=== PATIENT | male | born 1970 | race Two or more races ===

== ENCOUNTER 2017-02-03 20:59 | Emergency (ER) | payer OTHER ==
--- NOTE | 2017-02-04 00:06 | EKG REPORT ---
SEVERITY:- NORMAL ECG - SINUS RHYTHM : Confirmed by: Carey Tavarez 04-Feb-2017 00:05:52
== END 2017-02-03 23:50 | disposition left against medical advice (07) ==
LOC: ER 20:59
DX: Z53.21 Procedure and treatment not carried out due to patient leaving prior to being seen by health care provider (principal)
CPT/HCPCS: 93005; 93010

== ENCOUNTER 2019-08-29 14:34 | Emergency (ER) | payer OTHER ==
[2019-08-29 14:39] VITALS: BP 151/84
--- NOTE | 2019-08-29 17:55 | RADIOLOGY REPORT (SQ) ---
EXAM DESCRIPTION: FOOT RIGHT COMPLETE COMPLETED DATE/TIME: 08/29/2019 5:23 pm REASON FOR STUDY: foot pain no injury COMPARISON: None. NUMBER OF VIEWS: Three views. TECHNIQUE: AP, lateral and oblique radiographic images acquired of the right foot. LIMITATIONS: None. FINDINGS: MINERALIZATION: Normal. BONES: No acute fracture or dislocation. No worrisome bone lesions. JOINTS: No effusions. SOFT TISSUES: No soft tissue swelling. No foreign body. OTHER: No other significant finding. IMPRESSION: NEGATIVE STUDY OF THE RIGHT FOOT. NO RADIOGRAPHIC EVIDENCE OF ACUTE INJURY. TECHNICAL DOCUMENTATION: JOB ID: [id number] [employer]- All Rights Reserved Reading location - IP/workstation name: [email or web address]
--- NOTE | 2019-08-29 18:57 | ER Document Report ---
HPI - HPI Time Seen by Provider: 08/29/19 16:05 Pain Level: 4 Notes: Patient is an otherwise healthy 48-year-old male presenting with pain to the bottom of his right foot. Patient reports this is been going on for approximately 1 month. He denies any injury. He states that he is purchased some insoles to see if that would help but it has not. He states the pain initially started in his right great toe but is now causing him discomfort all the way up into the top of his foot. Past Medical History - General Information source: Patient - Social History Smoking Status: Current Every Day Smoker Chew tobacco use (# tins/day): No Frequency of alcohol use: None Drug Abuse: None Family History: Reviewed & Not Pertinent Patient has suicidal ideation: No Patient has homicidal ideation: No - Medical History Medical History: Negative Renal/ Medical History: Denies: Hx Peritoneal Dialysis Surgical Hx: Negative - Immunizations Immunizations up to date: Yes Vertical Provider Document - CONSTITUTIONAL Notes: PHYSICAL EXAMINATION: GENERAL: Well-appearing, well-nourished and in no acute distress. HEAD: Atraumatic, normocephalic. EYES: Pupils equal round extraocular movements intact, conjunctiva are normal. ENT: Nares patent NECK: Normal range of motion LUNGS: No respiratory distress Musculoskeletal: Normal range of motion NEUROLOGICAL: Normal speech, normal gait. PSYCH: Normal mood, normal affect. SKIN: Slight erythema noted to dorsal surface of left foot, no heat, tender with palpation, strong dorsalis pedis pulse. Cap refill less than 3 seconds. - INFECTION CONTROL TRAVEL OUTSIDE OF THE [place] IN LAST 30 DAYS: No Course - Re-evaluation Re-evalutation: Foot X-Ray 08/29/19 16:19 IMPRESSION: NEGATIVE STUDY OF THE RIGHT FOOT. NO RADIOGRAPHIC EVIDENCE OF ACUTE INJURY. Xrays negative, will trial patient on a course of steroids and have follow up with podiatry. Patient is agreeable to the plan. - Vital Signs Vital signs: Temp Pulse Resp BP Pulse Ox 98 F 76 18 151/84 H 99 08/29/19 14:38 08/29/19 14:38 08/29/19 14:38 08/29/19 14:38 08/29/19 14:38 Discharge - Discharge Clinical Impression: Foot pain, right Condition: Stable Disposition: HOME, SELF-CARE Additional Instructions: Your x-ray was negative today. Please take ibuprofen 600 mg every 6 hours. Take the prednisone as prescribed. Continue to wear supportive shoes. Follow-up with either primary care or disaster response director if not improving. Prescriptions: Prednisone [Deltasone 20 mg Tablet] 3 tab PO DAILY 5 Days #15 tablet Referrals: ARBEN MOON DPM [ACTIVE STAFF] - Follow up as needed KENA ROBERTSON DPM [ACTIVE STAFF] - Follow up as needed JET GONSALEZ MD [ACTIVE STAFF] - Follow up as needed [facility] [Provider Group] - Follow up as needed
== END 2019-08-29 19:03 | disposition home or self-care (01) ==
LOC: ER 14:34
DX: M79.671 Pain in right foot (principal); L53.9 Erythematous condition, unspecified; F17.200 Nicotine dependence, unspecified, uncomplicated
CPT/HCPCS: 99283

== ENCOUNTER 2019-11-25 01:25 | Emergency (ER) | payer OTHER ==
[2019-11-25 01:42] LABS: ABSOLUTE BASOPHILS # (AUTO) 0.1 10^3/uL (0.0-0.2); ABSOLUTE EOSINOPHILS # (AUTO) 0.2 10^3/uL (0.0-0.6); ABSOLUTE LYMPHOCYTES (AUTO) 3.3 10^3/uL (0.5-4.7); ABSOLUTE MONOCYTES (AUTO) 0.9 10^3/uL (0.1-1.4); BASOPHILS % (AUTO) 0.7 % (0-2); EOSINOPHILS % (AUTO) 2.1 % (0-6); HEMATOCRIT 49.2 % (37.9-51.0); HEMOGLOBIN 17.1 g/dL (13.5-17.0); LYMPHOCYTES % (AUTO) 31.4 % (13-45); MEAN CORPUSCULAR HEMOGLOBIN 31.8 pg (27.0-33.4); MEAN CORPUSCULAR HGB CONC 34.7 g/dL (32.0-36.0); MEAN CORPUSCULAR VOLUME 92 fl (80-97); MONOCYTES % (AUTO) 8.9 % (3-13); PLATELET COUNT 234 10^3/uL (150-450); RED BLOOD COUNT 5.37 10^6/uL (4.35-5.55); RED CELL DISTRIBUTION WIDTH 13.9 % (11.5-14.0); SEGMENTED NEUTROPHILS % (AUTO) 56.9 % (42-78); TOTAL CELLS COUNTED % (AUTO) 100 %; WHITE BLOOD COUNT 10.5 10^3/uL (4.0-10.5)
[2019-11-25 01:43] VITALS: BP 203/105
[2019-11-25 02:04] LABS: ALBUMIN 4.8 g/dL (3.5-5.0); ALKALINE PHOSPHATASE 111 U/L (38-126); ANION GAP 11 (5-19); ASPARTATE AMINO TRANSFERASE 32 U/L (17-59); BILIRUBIN,TOTAL 0.6 mg/dL (0.2-1.3); BLOOD UREA NITROGEN 12 mg/dL (7-20); CALCIUM 9.5 mg/dL (8.4-10.2); CARBON DIOXIDE 25 mmol/L (22-30); CHLORIDE 106 mmol/L (98-107); CREATINE KINASE 191 U/L (55-170); GLUCOSE 106 mg/dL (75-110); POTASSIUM 3.6 mmol/L (3.6-5.0); TOTAL PROTEIN 8.1 g/dL (6.3-8.2)
[2019-11-25 02:15] LABS: CREATINE KINASE MB 1.6 ng/mL (<4.55); TROPONIN I 0.025 ng/mL
--- NOTE | 2019-11-25 07:06 | EKG REPORT ---
SEVERITY:- BORDERLINE ECG - SINUS RHYTHM INDETERMINATE QRS AXIS LEFT ATRIAL ABNORMALITY IRBBB : Confirmed by: Jalil Gupta MD 25-Nov-2019 07:05:44
== END 2019-11-25 05:52 | disposition left against medical advice (07) ==
LOC: ER 01:25
DX: Z53.21 Procedure and treatment not carried out due to patient leaving prior to being seen by health care provider (principal); R07.9 Chest pain, unspecified
CPT/HCPCS: 36415; 80053; 82550; 82553; 84484; 85025; 93005; 93010

== ENCOUNTER 2019-11-25 08:57 | Emergency (ER) | payer OTHER ==
[2019-11-25] MEDS ORDERED: ASPIRIN 81 MG TABLET, CHEWABLE PO ONE (09:16)
--- NOTE | 2019-11-25 09:16 | ER Document Report ---
ED Medical Screen (RME) - General Chief Complaint: Chest Pain Stated Complaint: CHEST PAIN Time Seen by Provider: 11/25/19 09:13 Mode of Arrival: Ambulatory Information source: Patient Notes: 49-year-old male presented to ED for complaint of left-sided chest pain since yesterday around 730 last night. He states he did come to the ED last night about 1230 and left before he was seen he states he did come to the he states he did take aspirin x1 this morning. He states he has never had pain like this before he states he smokes three quarters of a pack a day but does not drink. He is alert oriented respirations regular nonlabored. He states that his father had a heart attack about 45-50. He does not have any history of high blood pressure or cholesterol but it is present in the family. He states sometimes when he takes a deep breath he does feel the pain in the left chest I have greeted and performed a rapid initial assessment of this patient. A comprehensive ED assessment and evaluation of the patient, analysis of test results and completion of medical decision making process will be conducted by an additional ED providers. TRAVEL OUTSIDE OF THE [place] IN LAST 30 DAYS: No - Related Data Allergies/Adverse Reactions: No Known Allergies Allergy (Verified 11/25/19 09:05) Past Medical History Renal/ Medical History: Denies: Hx Peritoneal Dialysis - Immunizations Immunizations up to date: Yes
[2019-11-25] MEDS ORDERED: ASPIRIN 81 MG TABLET, CHEWABLE ONE (09:30)
[2019-11-25 09:49] LABS: ABSOLUTE BASOPHILS # (AUTO) 0.1 10^3/uL (0.0-0.2); ABSOLUTE LYMPHOCYTES (AUTO) 2.3 10^3/uL (0.5-4.7); ABSOLUTE MONOCYTES (AUTO) 0.7 10^3/uL (0.1-1.4); BASOPHILS % (AUTO) 0.6 % (0-2); HEMOGLOBIN 16.5 g/dL (13.5-17.0); LYMPHOCYTES % (AUTO) 23.6 % (13-45); MEAN CORPUSCULAR HGB CONC 34.5 g/dL (32.0-36.0); TOTAL CELLS COUNTED % (AUTO) 100 %
[2019-11-25 09:57] LABS: ABSOLUTE EOSINOPHILS # (AUTO) 0.3 10^3/uL (0.0-0.6); ABSOLUTE NEUT (AUTO) 6.4 10^3/uL (1.7-8.2); EOSINOPHILS % (AUTO) 2.8 % (0-6); HEMATOCRIT 47.9 % (37.9-51.0); MEAN CORPUSCULAR HEMOGLOBIN 31.4 pg (27.0-33.4); MEAN CORPUSCULAR VOLUME 91 fl (80-97); MONOCYTES % (AUTO) 6.7 % (3-13); PLATELET COUNT 238 10^3/uL (150-450); RED BLOOD COUNT 5.25 10^6/uL (4.35-5.55); SEGMENTED NEUTROPHILS % (AUTO) 66.3 % (42-78); WHITE BLOOD COUNT 9.7 10^3/uL (4.0-10.5)
--- NOTE | 2019-11-25 10:02 | RADIOLOGY REPORT (SQ) ---
EXAM DESCRIPTION: CHEST 2 VIEWS COMPLETED DATE/TIME: 11/25/2019 8:43 am REASON FOR STUDY: left upper chest pain up to left jaw COMPARISON: None. EXAM PARAMETERS: NUMBER OF VIEWS: two views TECHNIQUE: Digital Frontal and Lateral radiographic views of the chest acquired. RADIATION DOSE: NA LIMITATIONS: none FINDINGS: LUNGS AND PLEURA: No opacities, masses or pneumothorax. No pleural effusion. MEDIASTINUM AND HILAR STRUCTURES: No masses or contour abnormalities. HEART AND VASCULAR STRUCTURES: Heart normal size. No evidence for failure. BONES: No acute findings. HARDWARE: None in the chest. OTHER: No other significant finding. IMPRESSION: NO ACUTE RADIOGRAPHIC FINDING IN THE CHEST. TECHNICAL DOCUMENTATION: JOB ID: [id number] [employer]- All Rights Reserved Reading location - IP/workstation name: [email or web address]
[2019-11-25 10:08] LABS: ALBUMIN 4.8 g/dL (3.5-5.0); ALKALINE PHOSPHATASE 114 U/L (38-126); ANION GAP 9 (5-19); ASPARTATE AMINO TRANSFERASE 36 U/L (17-59); BILIRUBIN,TOTAL 0.4 mg/dL (0.2-1.3); BLOOD UREA NITROGEN 10 mg/dL (7-20); CALCIUM 9.4 mg/dL (8.4-10.2); CARBON DIOXIDE 25 mmol/L (22-30); CHLORIDE 108 mmol/L (98-107); GLUCOSE 114 mg/dL (75-110); POTASSIUM 4.2 mmol/L (3.6-5.0); TOTAL PROTEIN 7.8 g/dL (6.3-8.2)
[2019-11-25 10:32] LABS: APPEARANCE,URINE SLIGHTLY-CLOUDY; BILIRUBIN,URINE NEGATIVE (NEGATIVE); COLOR,URINE YELLOW; GLUCOSE, URINE NEGATIVE (NEGATIVE); KETONES,URINE TRACE mg/dL (NEGATIVE); PROTEIN,URINE 30 mg/dL (NEGATIVE); URINE SPECIFIC GRAVITY 1.025
[2019-11-25] MEDS ORDERED: NORMAL SALINE 1000 ML 1,000 ML IV ONE (10:42)
--- NOTE | 2019-11-25 10:43 | ER Document Report ---
Entered by LELO MALDONADO SCRIBE 11/25/19 1002 Acting as scribe for:KATHERIN RASMUSSEN MD ED General - General Chief Complaint: Chest Pain > 30 Stated Complaint: CHEST PAIN Time Seen by Provider: 11/25/19 09:13 Mode of Arrival: Ambulatory Information source: Patient Notes: This 49 year old male patient presents to the ED today with complaints of left- sided chest pain with radiation to his left arm and left side of his neck that began at 7:30 PM last night. Patient states that the pain would come and go and that he came to ED last night around 12:30 PM, but left without being seen. Patient's blood pressure at that time was 205/103. Patient states that the pain has been steady since and that he has never experienced these symptoms before. Patient reports shortness of breath, nausea, but denies vomiting. Patient states that the pain is worse with deep breathing, sitting up, and pulling up. Patient notes that he hasn't seen a doctor or had his blood pressure checked in a while. Patient states that his father had a MN in his early 40s and that his brother iza platt is a heavy smoker recently had a CVA x1 month ago. Patient notes that he recently traveled to [place], [place] via car for a and returned at 4:00 AM x4 days ago. TRAVEL OUTSIDE OF THE [place] IN LAST 30 DAYS: No - Related Data Allergies/Adverse Reactions: No Known Allergies Allergy (Verified 11/25/19 09:05) Home Medications: [facility] Past Medical History - General Information source: Patient - Social History Smoking Status: Current Every Day Smoker Cigarette use (# per day): Yes - 0.75 ppd Chew tobacco use (# tins/day): No Smoking Education Provided: No Frequency of alcohol use: Occasional Drug Abuse: None Family History: Reviewed & Not Pertinent, CVA - Brother, heavy smoker in October 2019, Hyperlipidemia, Hypertension, Other - Father had a MN in his early 40s Patient has suicidal ideation: No Patient has homicidal ideation: No Past Surgical History: Reports: Hx Inguinal Hernia - Immunizations Immunizations up to date: Yes Review of Systems - Review of Systems Constitutional: No symptoms reported EENT: No symptoms reported Cardiovascular: See HPI, Chest pain Respiratory: See HPI, Short of breath Gastrointestinal: See HPI, Nausea. denies: Vomiting Genitourinary: No symptoms reported Male Genitourinary: No symptoms reported Musculoskeletal: See HPI, Neck pain, Other - Left arm pain Skin: No symptoms reported Hematologic/Lymphatic: No symptoms reported Neurological/Psychological: No symptoms reported -: Yes All other systems reviewed and negative Physical Exam - Vital signs Vitals: Temp Pulse Resp BP Pulse Ox 98.4 F 77 18 175/95 H 97 11/25/19 09:19 11/25/19 09:19 11/25/19 09:19 11/25/19 09:19 11/25/19 09:19 Interpretation: Hypertensive - General General appearance: Alert - HEENT Head: Normocephalic, Atraumatic Eyes: Normal Pupils: PERRL Neck: Other - Left posterior cervical musculature tenderness with palpation - Respiratory Respiratory status: No respiratory distress Chest status: Tender - Left anterior chest wall and axillary tenderness with palpation Breath sounds: Normal Chest palpation: Normal - Cardiovascular Rhythm: Regular Heart sounds: Normal auscultation Murmur: No - Abdominal Inspection: Normal Distension: No distension Bowel sounds: Normal Tenderness: Nontender - Abdomen soft Organomegaly: No organomegaly - Back Back: Tender - Left trapezius musculature tenderness with palpation - Extremities General upper extremity: Normal inspection General lower extremity: Normal inspection. No: Edema - No peripheral edema Shoulder: Tender - Neurological Neuro grossly intact: Yes - Psychological Associated symptoms: Normal affect, Normal mood - Skin Skin Temperature: Warm Skin Moisture: Dry Skin Color: Normal Course - Re-evaluation Re-evalutation: 11/25/19 10:55 The patient's first troponin came back positive at 0.43, his blood pressure is about 170 systolic. He was administered 1 sublingual nitroglycerin at 1054. 11/25/19 11:14 Patient reports the nitroglycerin did not help the chest pain but did cause a headache. Given that the patient's chest pain is reproducible throughout the left chest, it will be difficult to tell if his pain is improving with nitrates. 11/25/19 14:09 Nitroglycerin paste had been ordered for the patient, but it did not get started in a timely manner. After discussing the case with Dr. Carreon at [facility], I canceled that order and ordered nitroglycerin drip to titrate to a blood pressure of 130 systolic. When I went into see the patient just prior to leaving, his blood pressure was 170, so I asked the nurse to continue titrating the nitroglycerin drip to bring the patient's blood pressure down. - Vital Signs Vital signs: Temp Pulse Resp BP Pulse Ox 98.4 F 77 14 181/102 H 100 11/25/19 09:19 11/25/19 09:19 11/25/19 13:20 11/25/19 13:20 11/25/19 13:20 - Laboratory Result Diagrams: 11/25/19 09:32 11/25/19 09:32 Laboratory results interpreted by me: 11/25/19 11/25/19 11/25/19 09:32 09:32 09:32 Chloride 108 H Glucose 114 H Creatine Kinase 268 H CK-MB (CK-2) Urine Protein 30 H Urine Ketones TRACE H Urine Urobilinogen 2.0 H 11/25/19 09:32 Chloride Glucose Creatine Kinase CK-MB (CK-2) 9.16 H Urine Protein Urine Ketones Urine Urobilinogen - Diagnostic Test Radiology reviewed: Image reviewed, Reports reviewed - Chest x-ray is unremarkable. - EKG Interpretation by Me EKG shows normal: Sinus rhythm, Moro, Intervals, QRS Complexes - Right ventricular hypertrophy, ST-T Waves Rate: Normal - 74 Rhythm: NSR P Waves: LAE When compared to previous EKG there are: No significant change - Compared to EKG done about 1:30 AM this morning. - Consults Dr. Carreon Consulted provider: other - Will accept at [facility]. Critical Care Note - Critical Care Note Total time excluding time spent on procedures (mins): 45 Discharge - Discharge Clinical Impression: Non-STEMI (non-ST elevated myocardial infarction), Acute chest wall pain Hypertension Qualifiers: Hypertension type: essential hypertension Qualified Code(s): I10 - Essential (primary) hypertension Condition: Fair Disposition: [facility] Scribe Attestation: 11/25/19 11:15 I personally performed the services described in the documentation, reviewed and edited the documentation which was dictated to the scribe in my presence, and it accurately records my words and actions. I personally performed the services described in the documentation, reviewed and edited the documentation which was dictated to the scribe in my presence, and it accurately records my words and actions.
[2019-11-25 10:48] LABS: URINE AMPHETAMINES SCREEN NEGATIVE; URINE BARBITURATES SCREEN NEGATIVE; URINE BENZODIAZEPINES SCREEN NEGATIVE; URINE COCAINE SCREEN NEGATIVE; URINE METHADONE SCREEN NEGATIVE; URINE PHENCYCLIDINE SCREEN NEGATIVE
[2019-11-25 10:51] LABS: URINE MARIJUANA (THC) SCREEN UNCONFIRMED POSITIVE
[2019-11-25 11:14] LABS: CREATINE KINASE 268 U/L (55-170)
[2019-11-25] MEDS ORDERED: METOPROLOL TARTRATE PF/INJ 5 MG/5 ML SDV IV ONE (11:14)
[2019-11-25] MEDS ORDERED: ENOXAPARIN SODIUM INJ 100 MG/1 ML DISP.SYRIN SUBCUT ONE (11:58)
[2019-11-25] MEDS ORDERED: MORPHINE SULFATE 10 MG/ML INJ IV ONE ×2 (12:05→14:23)
[2019-11-25] MEDS ORDERED: ONDANSETRON HCL INJ/PF 4 MG/2 ML SDV IV ONE ×2 (12:05→14:23)
[2019-11-25] MEDS ORDERED: NITROGLYCERIN 2% OINTMENT 1 GM PACKET TP ONE (12:40)
[2019-11-25] MEDS ORDERED: NITROGLYCERIN/D5W 50 MG/250 ML RTUINJ IV PRN (12:56)
--- NOTE | 2019-11-25 13:50 | EKG REPORT ---
SEVERITY:- BORDERLINE ECG - SINUS RHYTHM PROBABLE LEFT ATRIAL ABNORMALITY CONSIDER RIGHT VENTRICULAR HYPERTROPHY : Confirmed by: Jalil Gupta MD 25-Nov-2019 13:50:13
[2019-11-25 14:56] VITALS: BP 142/82
== END 2019-11-25 14:55 | disposition short-term general hospital (02) ==
LOC: ER 08:57
DX: I21.4 Non-ST elevation (NSTEMI) myocardial infarction (principal); R07.89 Other chest pain; I10 Essential (primary) hypertension; M79.602 Pain in left arm; M54.2 Cervicalgia; R06.02 Shortness of breath; R11.0 Nausea; F17.210 Nicotine dependence, cigarettes, uncomplicated
CPT/HCPCS: 93005; 96376; 99285; 96372; 96361; 96375; 96365; 96366; 36415; 82553; 82550; 87070; 81001; 84484; 80307; 85379; 71046; 93010; J3490 ×2; J2270; J2405; J7030; J1650

== ENCOUNTER 2019-12-15 11:48 | Emergency (ER) | payer OTHER ==
--- NOTE | 2019-12-15 13:21 | ER Document Report ---
ED Medical Screen (RME) - General Chief Complaint: Chest Pain Stated Complaint: CHEST PAIN Time Seen by Provider: 12/15/19 13:15 Primary Care Provider: HERNESTO BIRD MD [Primary Care Provider] - Follow up as needed Mode of Arrival: Ambulatory Information source: Patient Notes: 49-year-old male patient with recent non-STEMI approximately 2 weeks ago presenting to the emergency department chief complaint of chest pain. Patient reports midsternal chest pain that radiates straight through to his back started 3 days ago. He states the pain is getting worse. He does report that he has anxiety and he thinks this may be a component. He does report some shortness of breath but denies any nausea, diaphoresis. He reports he was seen here in this hospital and sent to [facility] for his non-STEMI. He denies them placing any stents. Heart sounds S1-S2 present, normal rate, normal rhythm. Skin warm and dry, no diaphoresis noted. Lung sounds clear and equal bilaterally. I have greeted and performed a rapid initial assessment of this patient. A comprehensive ED assessment and evaluation of the patient, analysis of test results and completion of the medical decision making process will be conducted by additional ED providers. I have specifically instructed the patient or family members with the patient to immediately return to any nursing staff should anything change in the patient's condition or with their chief complaint. TRAVEL OUTSIDE OF THE [place] IN LAST 30 DAYS: No - Related Data Allergies/Adverse Reactions: No Known Allergies Allergy (Verified 12/15/19 13:10) Past Medical History - Social History Frequency of alcohol use: None Drug Abuse: None Renal/ Medical History: Denies: Hx Peritoneal Dialysis Past Surgical History: Reports: Hx Inguinal Hernia - Immunizations Immunizations up to date: Yes Physical Exam - Vital signs Vitals: Temp Pulse Resp BP Pulse Ox 98.7 F 77 16 134/80 H 97 12/15/19 12:12/15/19 12:12/15/19 12:12/15/19 12:12/15/19 12:25 Course - Vital Signs Vital signs: Temp Pulse Resp BP Pulse Ox 98.7 F 77 16 134/80 H 97 12/15/19 12:12/15/19 12:12/15/19 12:25 12/15/19 12:12/15/19 12:25 Doctor's Discharge - Discharge Referrals: HERNESTO BIRD MD [Primary Care Provider] - Follow up as needed
--- NOTE | 2019-12-15 13:22 | EKG REPORT ---
SEVERITY:- BORDERLINE ECG - SINUS RHYTHM PROBABLE LEFT ATRIAL ABNORMALITY INDETERMINATE QRS AXIS : Confirmed by: Jalil Gupta MD 15-Dec-2019 13:21:45
[2019-12-15] MEDS ORDERED: ASPIRIN 81 MG TABLET, CHEWABLE PO ONE (13:29)
--- NOTE | 2019-12-15 13:51 | ER Document Report ---
ED General - General Chief Complaint: Chest Pain Stated Complaint: CHEST PAIN Time Seen by Provider: 12/15/19 13:15 Primary Care Provider: HERNESTO BIRD MD [Primary Care Provider] - Follow up as needed Mode of Arrival: Ambulatory TRAVEL OUTSIDE OF THE [place] IN LAST 30 DAYS: No - HPI Notes: Patient is a 49-year-old male who presents to the emergency department for evaluation of chest pain. He states that started on Sunday evening. He states that the sharp chest pain that is in his left chest. It occasionally radiates around into his back. He has some mild associated shortness of breath. He states he thinks there may be a component of anxiety with this chest pain. The patient admits to a recent non-STEMI. He was transferred to [facility] from this facility. He underwent heart catheterization, per patient no stents were placed. He states he was told "his high blood pressure probably caused his heart problems, not the other way around." He states he has had some recent medication changes for his anxiety, is unsure if this is helping. Otherwise, he is taking all of his medications as prescribed, including his aspirin and high blood pressure medications. He states that the pain he had with his NSTEMI included a heaviness that is not present today. - Related Data Allergies/Adverse Reactions: No Known Allergies Allergy (Verified 12/15/19 13:10) Past Medical History - General Information source: Patient - Social History Smoking Status: Current Every Day Smoker Frequency of alcohol use: None Drug Abuse: None Family History: Reviewed & Not Pertinent, CVA - Brother, heavy smoker in October 2019, Hyperlipidemia, Hypertension, Other - Father had a VA in his early 40s Patient has suicidal ideation: No Patient has homicidal ideation: No - Past Medical History Cardiac Medical History: Reports: Hx Heart Attack, Hx Hypercholesterolemia, Hx Hypertension Endocrine Medical History: Reports: Hx Diabetes Mellitus Type 2 - "Borderline" Renal/ Medical History: Denies: Hx Peritoneal Dialysis Musculoskeletal Medical History: Reports Other - Chronic back pain Past Surgical History: Reports: Hx Cardiac Catheterization, Hx Inguinal Hernia - Immunizations Immunizations up to date: Yes Review of Systems - Review of Systems Constitutional: No symptoms reported EENT: No symptoms reported Cardiovascular: See HPI Respiratory: See HPI Gastrointestinal: No symptoms reported Genitourinary: No symptoms reported Musculoskeletal: No symptoms reported Skin: No symptoms reported Neurological/Psychological: No symptoms reported Physical Exam - Vital signs Vitals: Temp Pulse Resp BP Pulse Ox 98.7 F 77 16 134/80 H 97 12/15/19 12:25 12/15/19 12:25 12/15/19 12:12/15/19 12:25 12/15/19 12:25 - Notes Notes: Vital signs reviewed, please refer to chart. Head is normocephalic, atraumatic. Pupils equal round, reactive to light. Neck is supple without meningismus. Heart is regular rate and rhythm. Lungs are clear to auscultation bilaterally. Chest wall is tender to palpation on the left at approximately the fifth rib. Corresponding thoracic level at the same rib posteriorly is tender. Abdomen is soft, nontender, normoactive bowel sounds throughout. Extremities without cyanosis, clubbing. Posterior calves are nontender. Peripheral pulses are equal. Skin is warm and dry. Patient is awake, alert, neurological exam is nonfocal. Course - Re-evaluation Re-evalutation: 12/15/19 13:55 Patient presents to the emergency department for evaluation. He is sharp left- sided chest pain. This is different from the pain he had when he had his non- STEMI. Patient is stable at this time. His vital signs are unremarkable. Awaiting lab work, we will continue to monitor. 12/15/19 15:17 Patient's pain remains sharp, he denies any pressure type sensation. His first set of enzymes is totally negative. Given his recent history, second set is ordered. I do believe this is musculoskeletal in nature. Assuming negative second set of troponins, patient will be discharged with close follow-up with primary care and cardiology. 12/15/19 16:46 After Percocet, patient's pain is feeling significantly improved. He has an appointment to follow-up with his primary care provider tomorrow. Again assuming negative second troponin, patient will be discharged with close follow- up. - Vital Signs Vital signs: Temp Pulse Resp BP Pulse Ox 98.7 F 77 16 134/80 H 96 12/15/19 12:25 12/15/19 12:25 12/15/19 12:25 12/15/19 12:25 12/15/19 15:41 - Laboratory Result Diagrams: 12/15/19 13:53 12/15/19 13:53 - Diagnostic Test Radiology reviewed: Reports reviewed - EKG Interpretation by Me Additional EKG results interpreted by me: 12/15/19 13:56 Sinus mechanism with a rate of 71 bpm. Normal axis and intervals. Incomplete right bundle branch block. No change in compared to prior study on November 05, 2019. No ST elevation concerning for infarction. Discharge - Discharge Clinical Impression: Chest wall pain, Anxiety Condition: Stable Disposition: HOME, SELF-CARE Instructions: Anxiety ([facility]), Chest Wall Pain ([facility]), Chest Pain of Unclear Cause ([facility]) Additional Instructions: Please follow-up with your primary care provider tomorrow as scheduled. Follow- up with your bedspread seamer in 1 to 2 weeks. If you develop worsening or new concerning symptoms of any sort, please return immediately to the emergency department for evaluation. Referrals: HERNESTO BIRD MD [Primary Care Provider] - Follow up as needed
--- NOTE | 2019-12-15 13:55 | RADIOLOGY REPORT (SQ) ---
EXAM DESCRIPTION: CHEST SINGLE VIEW COMPLETED DATE/TIME: 12/15/2019 1:35 pm REASON FOR STUDY: chest pain COMPARISON: 11/25/2019. EXAM PARAMETERS: NUMBER OF VIEWS: One view. TECHNIQUE: Single frontal radiographic view of the chest acquired. RADIATION DOSE: NA LIMITATIONS: None. FINDINGS: LUNGS AND PLEURA: Stable appearing nodular density at the right lung base, may represent the patient's nipple. No acute pulmonary consolidation. No pneumothorax or pleural effusion. MEDIASTINUM AND HILAR STRUCTURES: No masses. Contour normal. HEART AND VASCULAR STRUCTURES: Heart normal in size. Normal vasculature. BONES: No acute findings. HARDWARE: None in the chest. OTHER: No other significant finding. IMPRESSION: 1. No significant interval changes since the previous examination dated 11/25/2019. Sta ble nodular density at the right lung base may represent the patient's nipple. No acute findings. TECHNICAL DOCUMENTATION: JOB ID: [id number] [employer]- All Rights Reserved Reading location - IP/workstation name: [email or web address]
[2019-12-15 14:12] LABS: ABSOLUTE BASOPHILS # (AUTO) 0.1 10^3/uL (0.0-0.2); ABSOLUTE EOSINOPHILS # (AUTO) 0.3 10^3/uL (0.0-0.6); ABSOLUTE LYMPHOCYTES (AUTO) 1.8 10^3/uL (0.5-4.7); ABSOLUTE MONOCYTES (AUTO) 0.7 10^3/uL (0.1-1.4); ABSOLUTE NEUT (AUTO) 5.6 10^3/uL (1.7-8.2); BASOPHILS % (AUTO) 0.6 % (0-2); EOSINOPHILS % (AUTO) 3.1 % (0-6); HEMATOCRIT 43.3 % (37.9-51.0); HEMOGLOBIN 15.3 g/dL (13.5-17.0); LYMPHOCYTES % (AUTO) 21.3 % (13-45); MEAN CORPUSCULAR HEMOGLOBIN 32.1 pg (27.0-33.4); MEAN CORPUSCULAR HGB CONC 35.3 g/dL (32.0-36.0); MEAN CORPUSCULAR VOLUME 91 fl (80-97); MONOCYTES % (AUTO) 8.8 % (3-13); PLATELET COUNT 278 10^3/uL (150-450); RED BLOOD COUNT 4.77 10^6/uL (4.35-5.55); RED CELL DISTRIBUTION WIDTH 13.6 % (11.5-14.0); SEGMENTED NEUTROPHILS % (AUTO) 66.2 % (42-78); TOTAL CELLS COUNTED % (AUTO) 100 %; WHITE BLOOD COUNT 8.4 10^3/uL (4.0-10.5)
[2019-12-15 14:23] LABS: ALBUMIN 4.4 g/dL (3.5-5.0); ALKALINE PHOSPHATASE 106 U/L (38-126); ANION GAP 6 (5-19); ASPARTATE AMINO TRANSFERASE 23 U/L (17-59); BILIRUBIN,TOTAL 0.5 mg/dL (0.2-1.3); BLOOD UREA NITROGEN 12 mg/dL (7-20); CARBON DIOXIDE 27 mmol/L (22-30); CHLORIDE 106 mmol/L (98-107); GLUCOSE 92 mg/dL (75-110); POTASSIUM 4.3 mmol/L (3.6-5.0); TOTAL PROTEIN 7.3 g/dL (6.3-8.2)
[2019-12-15] MEDS ORDERED: OXYCODONE-ACETAMINOPHEN 5-325 MG TABLET PO ONE (15:17)
[2019-12-15 17:11] VITALS: BP 122/76
== END 2019-12-15 17:11 | disposition home or self-care (01) ==
LOC: ER 11:48
DX: R07.89 Other chest pain (principal); F41.9 Anxiety disorder, unspecified; R06.02 Shortness of breath; F17.200 Nicotine dependence, unspecified, uncomplicated; E78.00 Pure hypercholesterolemia, unspecified; I10 Essential (primary) hypertension; R73.03 Prediabetes; I25.2 Old myocardial infarction
CPT/HCPCS: 36415; 71045; 80053; 84484; 85025; 93005; 93010; 99285